=== PATIENT | female | born 1965 | race Asian ===

== ENCOUNTER 2019-01-21 07:29 | Outpatient (CLI) | payer BC | END 2019-01-21 23:59 | disposition home or self-care (01) | LOC: CFH 07:29 | PROVIDERS: ATTEND Internal Medicine | DX: M75.52 Bursitis of left shoulder (principal); M75.112 Incomplete rotator cuff tear or rupture of left shoulder, not specified as traumatic; M50.11 Cervical disc disorder with radiculopathy, high cervical region; M25.412 Effusion, left shoulder | CPT/HCPCS: 72141 ==